=== PATIENT | female | born 1975 | race Caucasian/White ===

== ENCOUNTER 2018-01-26 14:47 | Emergency (ER) | payer MEDICARE ==
[~2018-01-26] VITALS: Ht 162.6 cm; Wt 114.3 kg
[~2018-01-26 14:47] MED LIST: ABILIFY10 MG PO; ADDERALL 20 MG20 M1 PO; ALLOPURINOL 10100 M3 PO; AUGMENTIN 875875 MG PO; CAMBIA50 MG PO; CARDIZEM CD180 MG PO; CARISOPRODOL; CARISOPRODOL 3350 MG PO; CEFTIN500 MG PO; CELLCEPT 250 M250 M1 PO; CELLCEPT200 MG/ML PER TUBE; CEPHALEXIN 500500 M1 PO; CIPROFLOXACIN500 M1 PO; CLONAZEPAM; CLONAZEPAM 1 MG1 M1 PO; CLONAZEPAM PO; CRESTOR10 MG PO; CYMBALTA60 MG PO; DEPAKOTE PO; DEPAKOTE500 MG PO; DESYREL100 MG PO; DIFLUCAN150 MG PO; DILAUDID 4 MG TA4 M1; EASY TOUCH HYP1 EA10 MC; EXCEDRIN SINUS1 EAC2; FLAGYL500 MG PO; GABAPENTIN PO; GABAPENTIN100 MG PO; GLUCOPHAGE500 MG PO; GRALISE600 MG PO; HUMALOG100 UNIT/1 SUBQ; HYDROCODONE-APA1 TA1 PO; LANTUS100 UNIT/M SUBQ; LASIX 40 MG TAB40 M2 PO; LASIX 80 MG TAB80 MG PO; LEVOFLOXACIN750 MG PO; LISINOPRIL20 MG PO; LISINOPRIL5 MG PO; LUNESTA3 MG; MAGNESIUM PO; METFORMIN; MINOCIN100 MG PO; NEURONTIN 300M300 M2 PO; NEURONTIN600 MG PO; NORCO 5-325 TA1 EACH PO; NORVASC2.5 MG PO; OMEPRAZOLE20 MG PO; OPANA ER20 MG PO; OPANA ER30 M1 PO; OXYCODONE PO; PERCOCET 7.5-31 EACH PO; POTASSIUM; PRAVACHOL; PRAVACHOL40 MG PO; PRINIVIL20 MG PO; PROVERA10 MG PO; PROVIGIL; PROVIGIL 200 M200 M1 PO; RISPERDAL2 MG PO; SEPTRA 80-4001 EACH PO; TEMAZEPAM15 MG PO; TRAZODONE HCL50 MG PO; VIT D; ZANAFLEX4 MG PO; ZANTAC 150MG T150 M1 PO; ZESTRIL40 MG PO; ZOFRAN ODT4 MG PO; ZOFRAN4 MG PO; ZPAK PO; ZYRTEC-D TABLE1 EACH PO; [UNRECOGNIZED DRUG - OTHER]
[2018-01-26 16:30] LABS: URINE BILIRUBIN NEGATIVE (Negative); URINE BLOOD TRACE (Negative); URINE CLARITY CLEAR; URINE COLOR YELLOW; URINE GLUCOSE-RANDOM 1+ (Negative); URINE KETONES TRACE (Negative); URINE LEUKOCYTES-REFLEX NEGATIVE (Negative); URINE NITRITE-REFLEX NEGATIVE (Negative); URINE PROTEIN 3+ (Negative); URINE SPECIFIC GRAVITY 1.025 (1.005-1.030); URINE UROBILINOGEN 0.2 E.U./dl (0.2-1.0)
[2018-01-26 16:41] LABS: MUCUS None Seen strn/LPF (None Seen); SQUAMOUS >10 Many /LPF (0-3)
[2018-01-26 16:42] LABS: BACTERIA-REFLEX 1-9 Few /HPF (None Seen); CRYSTALS None Seen /LPF (None Seen); URINE RBC 0-2 Rare /HPF (0-2); URINE WBC-REFLEX None Seen /HPF (0-5)
[2018-01-26 17:30] LABS: ABSOLUTE BASOPHILS 0.2 thou/uL (0.0-0.2); ABSOLUTE EOSINOPHILS 0.2 thou/uL (0.0-0.7); ABSOLUTE LYMPHOCYTES 3.1 thou/uL (0.8-5.3); ABSOLUTE NEUTROPHILS 8.5 thou/uL (1.6-8.1); BASOPHILS 1.5 %; EOSINOPHILS 1.6 %; HEMATOCRIT 38.6 % (37.0-47.0); LYMPHOCYTES 23.8 %; MCH 29.7 pg (26.0-34.0); MCHC 33.7 g/dL (28.0-37.0); MCV 88.1 fL (80.0-100.0); MONOCYTES 7.8 %; MPV 8.3 fl. (7.2-11.1); NUCLEATED RBCS 0 /100WBC; PLATELET COUNT* 361 thou/uL (150-400); POLYS 65.3 %; RBC 4.38 mil/uL (4.20-5.00); RDW-CV 14.3 % (10.5-14.5); WBC 13.1 thou/uL (4.0-11.0)
[2018-01-26 17:37] LABS: ANION GAP 8 mmol/L (7-16); BUN 13 mg/dL (7-18); CALCIUM 8.7 mg/dL (8.5-10.1); CHLORIDE 103 mmol/L (98-107); CO2 27 mmol/L (21-32); CREATININE 0.8 mg/dL (0.6-1.3); GLUCOSE 160 mg/dL (70-99); POTASSIUM 3.8 mmol/L (3.5-5.1); SODIUM 138 mmol/L (136-145)
[2018-01-26 17:44] LABS: ALBUMIN 2.6 g/dL (3.4-5.0); ALKALINE PHOSPHATASE 80 U/L (46-116); LIPASE 200 U/L (73-393); SGOT 10 U/L (15-37); SGPT 15 U/L (30-65); TOTAL BILIRUBIN 0.2 mg/dL (<0.1-1.0); TOTAL PROTEIN 6.9 g/dL (6.4-8.2); TROPONIN-I LEVEL <0.06 ng/mL (<0.06)
[2018-01-26] MEDS ORDERED: HYDROCODONE-AP1 EAC6 PO (19:02)
[2018-01-26] MEDS ORDERED: ONDANSETRON HCL4 M2 PO (19:03)
[2018-01-26 19:18] VITALS: BP 167/94
--- NOTE | 2018-01-27 15:20 | EKG ---
[place] [address] ELECTROCARDIOGRAM REPORT Name: BREE BELLO Room: [facility]#: [id number] Admission: 01/26/18 Attend Phys: Discharge: 01/26/18 Date of : 75 Report #: [id number] THIS REPORT FOR: //name// [facility] ED Test Date: 2018-01-26 Test Time: 17:16:42 Pat Name: BREE BELLO Department: Room: Gender: F Line Server: Horacio CONDE : 1975 Requested By: Yenny Castellanos Order Number: [id number] MD: Mandeep Terry Measurements Intervals [place] Rate: 82 P: 1 NE: 203 QRS: 28 QRSD: 76 T: 48 QT: 356 QTc: 416 Interpretive Statements Sinus rhythm Borderline prolonged NE interval Low voltage, precordial leads Minimal ST depression, inferior leads Baseline wander in lead(s) II,III,aVF Compared to ECG 04/13/2017 21:52:09 Low QRS voltage now present ST (T wave) deviation now present Electronically Signed On 01-27-2018 15:20:31 WAITER/WAITRESS THIRD CLASS by Mandeep Terry [email or web address] <ELECTRONICALLY SIGNED> By: Mandeep Terry MD, FACC 01/27/18 1520 1716 1716 Mandeep Terry MD, FAC /EPI
== END 2018-01-26 19:18 | disposition home or self-care (01) ==
LOC: M.ERS 14:47
PROVIDERS: Nurse Practitioner Family; Physician Assistant
DX: R10.31 Right lower quadrant pain (principal); R10.32 Left lower quadrant pain; M19.90 Unspecified osteoarthritis, unspecified site; M79.7 Fibromyalgia; F31.9 Bipolar disorder, unspecified; G47.30 Sleep apnea, unspecified; E11.9 Type 2 diabetes mellitus without complications; F17.210 Nicotine dependence, cigarettes, uncomplicated; Z90.49 Acquired absence of other specified parts of digestive tract; Z90.89 Acquired absence of other organs; Z90.710 Acquired absence of both cervix and uterus; Z88.8 Allergy status to other drugs, medicaments and biological substances; Z91.041 Radiographic dye allergy status; Z79.4 Long term (current) use of insulin

== ENCOUNTER → 2018-01-30 | Outpatient (CLI) | payer MEDICARE ==
[~2018-01-30] MED LIST changes: +CARDIZEM CD120 MG; +COREG25 MG; +HYDROCODONE-AP1 EAC6 PO; +ONDANSETRON HCL4 M2 PO; +SPIRONOLACTONE25 MG
== END ==
LOC: M.ULTRA 01-29 13:30
DX: N17.9 Acute kidney failure, unspecified (principal); D72.829 Elevated white blood cell count, unspecified; E78.5 Hyperlipidemia, unspecified; E87.6 Hypokalemia

== ENCOUNTER → 2018-02-17 | Outpatient (CLI) | payer MEDICARE ==
[2018-02-17 14:31] LABS: ABSOLUTE BASOPHILS 0.1 thou/uL (0.0-0.2); ABSOLUTE EOSINOPHILS 0.1 thou/uL (0.0-0.7); ABSOLUTE LYMPHOCYTES 2.4 thou/uL (0.8-5.3); ABSOLUTE MONOCYTES 0.6 thou/uL (0.0-1.2); ABSOLUTE NEUTROPHILS 8.4 thou/uL (1.6-8.1); BASOPHILS 0.9 %; HEMATOCRIT 38.9 % (37.0-47.0); HEMOGLOBIN 13.1 gm/dL (12.0-15.0); MCH 29.6 pg (26.0-34.0); MCHC 33.8 g/dL (28.0-37.0); MCV 87.6 fL (80.0-100.0); MONOCYTES 5.2 %; MPV 8.1 fl. (7.2-11.1); NUCLEATED RBCS 0 /100WBC; PLATELET COUNT* 335 thou/uL (150-400); POLYS 71.9 %; RBC 4.44 mil/uL (4.20-5.00); RDW-CV 14.1 % (10.5-14.5); WBC 11.6 thou/uL (4.0-11.0)
[2018-02-17 14:44] LABS: ALBUMIN 2.7 g/dL (3.4-5.0); CALCIUM 9.2 mg/dL (8.5-10.1); CREATININE 0.8 mg/dL (0.6-1.3); MAGNESIUM 1.5 mg/dL (1.8-2.4); PHOSPHORUS* 3.6 mg/dL (2.5-4.9); POTASSIUM 3.5 mmol/L (3.5-5.1); TOTAL BILIRUBIN 0.2 mg/dL (<0.1-1.0); TOTAL PROTEIN 7.2 g/dL (6.4-8.2); URIC ACID* 5.1 mg/dL (2.6-7.2)
== END ==
LOC: M.LAB 14:05
PROVIDERS: Internal Medicine Nephrology
DX: N17.9 Acute kidney failure, unspecified (principal); Q89.9 Congenital malformation, unspecified; R94.31 Abnormal electrocardiogram [ECG] [EKG]; J44.9 Chronic obstructive pulmonary disease, unspecified; E11.9 Type 2 diabetes mellitus without complications; F31.9 Bipolar disorder, unspecified; Z79.899 Other long term (current) drug therapy

== ENCOUNTER 2018-02-18 17:05 | Emergency (ER) | payer MEDICARE ==
[~2018-02-18] VITALS: Ht 162.6 cm; Wt 113.8 kg
[~2018-02-18 17:05] MED LIST changes: -CARDIZEM CD120 MG; -COREG25 MG; -SPIRONOLACTONE25 MG
[2018-02-18 19:08] VITALS: BP 172/101
== END 2018-02-18 19:10 | disposition home or self-care (01) ==
LOC: M.ERS 17:05
DX: S39.012A Strain of muscle, fascia and tendon of lower back, initial encounter (principal); M79.7 Fibromyalgia; M19.90 Unspecified osteoarthritis, unspecified site; F31.9 Bipolar disorder, unspecified; G47.30 Sleep apnea, unspecified; E11.22 Type 2 diabetes mellitus with diabetic chronic kidney disease; N18.9 Chronic kidney disease, unspecified; F17.210 Nicotine dependence, cigarettes, uncomplicated; Z88.8 Allergy status to other drugs, medicaments and biological substances; Z91.041 Radiographic dye allergy status; Z79.4 Long term (current) use of insulin; W18.39XA Other fall on same level, initial encounter; Y93.89 Activity, other specified; Y92.89 Other specified places as the place of occurrence of the external cause; Y99.8 Other external cause status

== ENCOUNTER 2018-03-25 11:03 | Emergency (ER) | payer MEDICARE ==
[~2018-03-25] VITALS: Ht 162.6 cm; Wt 113.4 kg
[2018-03-25 11:49] LABS: ABSOLUTE BASOPHILS 0.2 thou/uL (0.0-0.2); ABSOLUTE EOSINOPHILS 0.2 thou/uL (0.0-0.7); ABSOLUTE LYMPHOCYTES 3.3 thou/uL (0.8-5.3); ABSOLUTE MONOCYTES 0.7 thou/uL (0.0-1.2); ABSOLUTE NEUTROPHILS 6.8 thou/uL (1.6-8.1); BASOPHILS 1.5 %; EOSINOPHILS 2.1 %; HEMATOCRIT 38.4 % (37.0-47.0); HEMOGLOBIN 12.7 gm/dL (12.0-15.0); LYMPHOCYTES 29.5 %; MCH 28.6 pg (26.0-34.0); MCHC 33.1 g/dL (28.0-37.0); MCV 86.4 fL (80.0-100.0); MONOCYTES 6.5 %; MPV 8.1 fl. (7.2-11.1); NUCLEATED RBCS 0 /100WBC; PLATELET COUNT* 322 thou/uL (150-400); POLYS 60.4 %; RBC 4.45 mil/uL (4.20-5.00); RDW-CV 14.3 % (10.5-14.5); WBC 11.3 thou/uL (4.0-11.0)
[2018-03-25 11:59] LABS: ANION GAP 8 mmol/L (7-16); BUN 9 mg/dL (7-18); CALCIUM 8.3 mg/dL (8.5-10.1); CHLORIDE 103 mmol/L (98-107); CO2 28 mmol/L (21-32); CREATININE 1.1 mg/dL (0.6-1.3); GLUCOSE 248 mg/dL (70-99); POTASSIUM 3.5 mmol/L (3.5-5.1); SODIUM 139 mmol/L (136-145)
[2018-03-25 12:09] LABS: ALBUMIN 2.4 g/dL (3.4-5.0); ALKALINE PHOSPHATASE 82 U/L (46-116); LIPASE 175 U/L (73-393); MAGNESIUM 1.4 mg/dL (1.8-2.4); NT-PRO BRAIN NAT PEPTIDE 206 pg/mL (<300); SGOT 10 U/L (15-37); SGPT 16 U/L (30-65); TOTAL BILIRUBIN 0.2 mg/dL (<0.1-1.0); TOTAL PROTEIN 6.5 g/dL (6.4-8.2); TROPONIN-I LEVEL <0.06 ng/mL (<0.06)
[2018-03-25] MEDS ORDERED: NORCO 5-325 TA1 EACH PO (12:52)
[2018-03-25] MEDS ORDERED: ZPAK PO (12:52)
[2018-03-25 12:58] VITALS: BP 184/98
--- NOTE | 2018-03-25 15:11 | EKG ---
[place] [address] ELECTROCARDIOGRAM REPORT Name: BREE BELLO Room: [facility]#: [id number] Admission: 03/25/18 Attend Phys: Discharge: 03/25/18 Date of : 75 Report #: [id number] THIS REPORT FOR: //name// [facility] ED Test Date: 2018-03-25 Test Time: 11:25:03 Pat Name: BREE BELLO Department: Room: Gender: F Market Research Lead: DINA : 1975 Requested By: Ronak Rivera Order Number: [id number] MD: Guanakito Davila Measurements Intervals [place] Rate: 80 P: -4 MN: 172 QRS: 41 QRSD: 79 T: 71 QT: 373 QTc: 431 Interpretive Statements Sinus rhythm Borderline repolarization abnormality Baseline wander in lead(s) III,aVF,V1,V3,V4,V5 Compared to ECG 01/26/2018 17:16:42 ST (T wave) deviation no longer present Electronically Signed On 03-25-2018 15:11:03 CDT by Guanakito Davila [email or web address] <ELECTRONICALLY SIGNED> By: Guanakito Davila MD, [facility] 03/25/18 1511 1125 1125 Guanakito Davila MD, [facility] /EPI
== END 2018-03-25 13:10 | disposition home or self-care (01) ==
LOC: M.ERS 11:03
PROVIDERS: Emergency Medicine Emergency Medical Services
DX: J40 Bronchitis, not specified as acute or chronic (principal); S46.811A Strain of other muscles, fascia and tendons at shoulder and upper arm level, right arm, initial encounter; X58.XXXA Exposure to other specified factors, initial encounter; Y93.89 Activity, other specified; Y92.89 Other specified places as the place of occurrence of the external cause; Y99.8 Other external cause status

== ENCOUNTER 2018-07-27 18:52 | Emergency (ER) | payer MEDICARE ==
[~2018-07-27] VITALS: Ht 162.6 cm; Wt 115.7 kg
[2018-07-27 20:41] VITALS: BP 148/88
== END 2018-07-27 20:44 | disposition home or self-care (01) ==
LOC: M.ERS 18:52
DX: G43.909 Migraine, unspecified, not intractable, without status migrainosus (principal); M79.7 Fibromyalgia; F31.9 Bipolar disorder, unspecified; G47.30 Sleep apnea, unspecified; E11.22 Type 2 diabetes mellitus with diabetic chronic kidney disease; N18.9 Chronic kidney disease, unspecified; F17.210 Nicotine dependence, cigarettes, uncomplicated; Z90.710 Acquired absence of both cervix and uterus; Z90.49 Acquired absence of other specified parts of digestive tract; Z90.89 Acquired absence of other organs; Z79.4 Long term (current) use of insulin; Z88.8 Allergy status to other drugs, medicaments and biological substances; Z91.041 Radiographic dye allergy status

== ENCOUNTER 2018-07-29 18:54 | Emergency (ER) | payer MEDICARE ==
[~2018-07-29] VITALS: Ht 162.6 cm; Wt 115.7 kg
[2018-07-29] MEDS ORDERED: CARDIZEM CD120 MG (19:07)
[2018-07-29] MEDS ORDERED: SPIRONOLACTONE25 MG (19:08)
[2018-07-29] MEDS ORDERED: COREG25 MG (19:09)
[2018-07-29 21:30] VITALS: BP 152/91
== END 2018-07-29 21:30 | disposition home or self-care (01) ==
LOC: M.ERS 18:54
DX: G43.909 Migraine, unspecified, not intractable, without status migrainosus (principal); E11.22 Type 2 diabetes mellitus with diabetic chronic kidney disease; N18.9 Chronic kidney disease, unspecified; M79.7 Fibromyalgia; F31.9 Bipolar disorder, unspecified; G47.30 Sleep apnea, unspecified; F17.210 Nicotine dependence, cigarettes, uncomplicated; Z90.710 Acquired absence of both cervix and uterus; Z91.041 Radiographic dye allergy status; Z88.8 Allergy status to other drugs, medicaments and biological substances; Z90.49 Acquired absence of other specified parts of digestive tract; Z79.4 Long term (current) use of insulin

== ENCOUNTER 2018-11-28 02:28 | Inpatient (IN) | payer MEDICARE ==
[~2018-11-28] VITALS: Ht 162.6 cm; Wt 107.5 kg
[~2018-11-28 02:28] MED LIST changes: +CARDIZEM CD120 MG; +CHOLECALCIFEROL1 GM PO; +COREG25 MG PO; -OXYCODONE PO; +ROXICODONE15 M1 PO; +SPIRONOLACTONE25 MG PO; -VIT D
[2018-11-28 02:37] VITALS: BP 199/114
[2018-11-28 02:53] LABS: ABSOLUTE BASOPHILS 0.1 thou/uL (0.0-0.2); ABSOLUTE EOSINOPHILS 0.1 thou/uL (0.0-0.7); ABSOLUTE LYMPHOCYTES 2.8 thou/uL (0.8-5.3); ABSOLUTE MONOCYTES 0.7 thou/uL (0.0-1.2); ABSOLUTE NEUTROPHILS 8.1 thou/uL (1.6-8.1); EOSINOPHILS 0.7 %; HEMATOCRIT 41.8 % (37.0-47.0); LYMPHOCYTES 23.8 %; MCH 29.7 pg (26.0-34.0); MCHC 33.5 g/dL (28.0-37.0); MCV 88.6 fL (80.0-100.0); MONOCYTES 6.2 %; MPV 9.3 fl. (7.2-11.1); NUCLEATED RBCS 0 /100WBC; PLATELET COUNT* 377 thou/uL (150-400); POLYS 68.3 %; RBC 4.71 mil/uL (4.20-5.00); RDW-CV 13.3 % (10.5-14.5); WBC 11.9 thou/uL (4.0-11.0)
[2018-11-28 02:59] LABS: URINE BILIRUBIN NEGATIVE (Negative); URINE BLOOD TRACE (Negative); URINE CLARITY CLEAR; URINE COLOR YELLOW; URINE GLUCOSE-RANDOM 3+ (Negative); URINE KETONES NEGATIVE (Negative); URINE LEUKOCYTES-REFLEX NEGATIVE (Negative); URINE NITRITE-REFLEX NEGATIVE (Negative); URINE PROTEIN 3+ (Negative); URINE SPECIFIC GRAVITY 1.025 (1.005-1.030); URINE UROBILINOGEN 0.2 E.U./dl (0.2-1.0)
[2018-11-28 03:11] LABS: BE -5.3 mmol/L (-2 to +3); HCO3 18.7 mmol/L (22.0-26.0); PCO2 32.3 mmHg (35.0-45.0); PO2 98.7 mmHg (75.0-100.0); pH 7.381 (7.340-7.450)
[2018-11-28 03:19] LABS: BACTERIA-REFLEX >30 Many /HPF (None Seen); CRYSTALS None Seen /LPF (None Seen); HYALINE CASTS 0-3 Few /LPF (None Seen); MUCUS 0-3 Light strn/LPF (None Seen); SQUAMOUS 0-3 Few /LPF (0-3); URINE RBC 0-2 Rare /HPF (0-2); URINE WBC-REFLEX 0-5 Rare /HPF (0-5)
[2018-11-28 03:39] LABS: ALBUMIN 3.2 g/dL (3.4-5.0); CALCIUM 9.8 mg/dL (8.5-10.1); CREATININE 1.4 mg/dL (0.6-1.3); POTASSIUM 3.9 mmol/L (3.5-5.1); TOTAL BILIRUBIN 0.3 mg/dL (<0.1-1.0); TOTAL PROTEIN 7.5 g/dL (6.4-8.2)
[2018-11-28 05:21] LABS: AMP/METHAMP Negative (Negative); BARBITURATES Negative (Negative); BENZODIAZEPINES Negative (Negative); COCAINE Negative (Negative); METHADONE Negative (Negative); OPIATES Negative (Negative); PCP Negative (Negative); THC Negative (Negative)
[2018-11-28 05:55] VITALS: BP 139/89
[2018-11-28] MEDS ORDERED: ZESTRIL40 MG PO (06:38)
--- NOTE | 2018-11-28 09:59 | NUR ---
DECLINED BREAKFAST, HELD ANY INSULIN DUE TO NOT EATING.
[2018-11-28 14:29] LABS: CALCIUM 9.3 mg/dL (8.5-10.1); CREATININE 1.2 mg/dL (0.6-1.3); MAGNESIUM 1.7 mg/dL (1.8-2.4); POTASSIUM 3.5 mmol/L (3.5-5.1)
[2018-11-28 16:00] VITALS: BP 130/87
[2018-11-28 16:15] LABS: URINE BILIRUBIN NEGATIVE (Negative); URINE BLOOD TRACE (Negative); URINE CLARITY CLEAR; URINE COLOR YELLOW; URINE GLUCOSE-RANDOM TRACE (Negative); URINE KETONES NEGATIVE (Negative); URINE LEUKOCYTES-REFLEX NEGATIVE (Negative); URINE NITRITE-REFLEX NEGATIVE (Negative); URINE PROTEIN 3+ (Negative); URINE SPECIFIC GRAVITY >= 1.030 (1.005-1.030); URINE UROBILINOGEN 0.2 E.U./dl (0.2-1.0)
[2018-11-28 16:28] LABS: BACTERIA-REFLEX 1-9 Few /HPF (None Seen); CASTS None Seen /LPF (None Seen); CRYSTALS None Seen /LPF (None Seen); SQUAMOUS NONE SEEN /LPF (0-3); URINE RBC None Seen /HPF (0-2); URINE WBC-REFLEX None Seen /HPF (0-5)
[2018-11-29] VITALS: BP 146/49
[2018-11-29 04:00] VITALS: BP 125/78; BP 146/49
[2018-11-29 08:48] VITALS: BP 109/69
[2018-11-29] MEDS ORDERED: HUMULIN R100 UNIT/M SUBQ (11:00)
[2018-11-29] MEDS ORDERED: HUMULIN N100 UNIT/1 SUBQ (11:00)
--- NOTE | 2018-11-29 11:15 | EKG ---
[place] [address] ELECTROCARDIOGRAM REPORT Name: BREE BELLO Room: [address] ADM IN M.R.#: [id number] Admission: 11/28/18 Attend Phys: Anup Vinson MD Discharge: Date of : 75 Report #: [id number] THIS REPORT FOR: //name// [facility] ED Test Date: 2018-11-28 Test Time: 03:10:27 Pat Name: BREE BELLO Department: Room: [address] Gender: F Radio Assembler: CECI : 1975 Requested By: Yenny Womack Order Number: [id number] MD: Guanakito Davila Measurements Intervals [place] Rate: 115 P: 8 MT: 170 QRS: 29 QRSD: 78 T: 53 QT: 310 QTc: 429 Interpretive Statements Sinus tachycardia Baseline wander in lead(s) V1 Compared to ECG 03/25/2018 11:25:03 Sinus rate has increased Electronically Signed On 11-29-2018 11:14:57 TELEVISION TUBE INSPECTOR by Guanakito Davila [email or web address] <ELECTRONICALLY SIGNED> By: Guanakito Davila MD, [facility] 11/29/18 1114 9 9 Guanakito Davila MD, FAC /EPI
[2018-11-29 12:00] VITALS: BP 122/77
[2018-11-29 12:38] VITALS: BP 109/69
--- NOTE | 2018-11-29 14:07 | NUR ---
PATIENT PROVIDED WITH GLUCOMETER. PER DR OBANDO WILL START ON NPH AND REGULAR INSULIN AT [facility] FOR FINANCIAL REASONS. SCRIPTS GIVEN TO PATIENT FOR THOSE AND LANCETS AND TEST STRIPS. PATIENT EDUCATED ON METER AND INSULINS. VOICED UNDERSTANDING OF EDUCATION. LEFT AMBULATORY WITH SPOUSE AND SPECIAL EDUCATION PARA PROFESSIONAL AT 1406.
[2018-11-29 22:05] LABS: GLYCOHEMOGLOBIN (HGB A1C) 10.5 % (4.8-5.6)
== END 2018-11-29 14:06 | disposition home or self-care (01) | DRG 682 ==
LOC: M.ERS 02:28 → M.3W 03:45 → M.TBA-ER 03:45 → M.3W 04:56
PROVIDERS: Internal Medicine; Personal Emergency Response Attendant; ADMIT Internal Medicine
PROC: 5A09357 Assistance with Respiratory Ventilation, Less than 24 Consecutive Hours, Continuous Positive Airway Pressure (ICD-10-PCS; principal; 2018-11-28)
DX: N17.0 Acute kidney failure with tubular necrosis (principal); E11.00 Type 2 diabetes mellitus with hyperosmolarity without nonketotic hyperglycemic-hyperosmolar coma (NKHHC); R65.11 Systemic inflammatory response syndrome (SIRS) of non-infectious origin with acute organ dysfunction; E66.2 Morbid (severe) obesity with alveolar hypoventilation; Z68.41 Body mass index [BMI] 40.0-44.9, adult; N39.0 Urinary tract infection, site not specified; N18.3 Chronic kidney disease, stage 3 (moderate); E11.65 Type 2 diabetes mellitus with hyperglycemia; M79.7 Fibromyalgia; E11.22 Type 2 diabetes mellitus with diabetic chronic kidney disease; R63.1 Polydipsia; G47.419 Narcolepsy without cataplexy; F31.9 Bipolar disorder, unspecified; Z90.710 Acquired absence of both cervix and uterus; Z98.51 Tubal ligation status; Z90.49 Acquired absence of other specified parts of digestive tract; Z88.8 Allergy status to other drugs, medicaments and biological substances; Z91.041 Radiographic dye allergy status; Z79.4 Long term (current) use of insulin; Z79.899 Other long term (current) drug therapy; Z82.49 Family history of ischemic heart disease and other diseases of the circulatory system; Z83.3 Family history of diabetes mellitus; Z80.9 Family history of malignant neoplasm, unspecified; Z83.6 Family history of other diseases of the respiratory system; Z84.1 Family history of disorders of kidney and ureter

== ENCOUNTER 2019-01-07 01:43 | Emergency (ER) | payer MEDICARE ==
[~2019-01-07] VITALS: Ht 162.6 cm; Wt 107.0 kg
[~2019-01-07 01:43] MED LIST changes: +HUMULIN N100 UNIT/1 SUBQ; +HUMULIN R100 UNIT/M SUBQ
[2019-01-07 02:16] LABS: ABSOLUTE BASOPHILS 0.1 thou/uL (0.0-0.2); ABSOLUTE EOSINOPHILS 0.1 thou/uL (0.0-0.7); ABSOLUTE LYMPHOCYTES 2.7 thou/uL (0.8-5.3); ABSOLUTE MONOCYTES 0.7 thou/uL (0.0-1.2); ABSOLUTE NEUTROPHILS 7.5 thou/uL (1.6-8.1); BASOPHILS 0.9 %; EOSINOPHILS 1.1 %; HEMATOCRIT 37.8 % (37.0-47.0); HEMOGLOBIN 12.8 gm/dL (12.0-15.0); LYMPHOCYTES 24.6 %; MCH 29.5 pg (26.0-34.0); MCHC 33.8 g/dL (28.0-37.0); MCV 87.2 fL (80.0-100.0); MONOCYTES 6.2 %; MPV 8.6 fl. (7.2-11.1); NUCLEATED RBCS 0 /100WBC; PLATELET COUNT* 343 thou/uL (150-400); POLYS 67.2 %; RBC 4.34 mil/uL (4.20-5.00); RDW-CV 13.3 % (10.5-14.5); WBC 11.2 thou/uL (4.0-11.0)
[2019-01-07 02:23] LABS: ANION GAP 8 mmol/L (7-16); BUN 15 mg/dL (7-18); CALCIUM 9.2 mg/dL (8.5-10.1); CHLORIDE 101 mmol/L (98-107); CO2 24 mmol/L (21-32); CREATININE 1.2 mg/dL (0.6-1.3); GLUCOSE 284 mg/dL (70-99); POTASSIUM 3.4 mmol/L (3.5-5.1); SODIUM 133 mmol/L (136-145)
[2019-01-07 02:29] LABS: ALKALINE PHOSPHATASE 131 U/L (46-116); LIPASE 218 U/L (73-393); SGOT 22 U/L (15-37); SGPT 33 U/L (30-65); TOTAL BILIRUBIN 0.2 mg/dL (<0.1-1.0); TROPONIN-I LEVEL <0.06 ng/mL (<0.06)
[2019-01-07] MEDS ORDERED: ZOFRAN ODT4 MG DISSOLVE (04:17)
[2019-01-07 04:57] VITALS: BP 162/88
--- NOTE | 2019-01-07 15:38 | EKG ---
[place] [address] ELECTROCARDIOGRAM REPORT Name: BREE BELLO Room: [facility]#: [id number] Admission: 01/07/19 Attend Phys: Discharge: 01/07/19 Date of : 75 Report #: [id number] THIS REPORT FOR: //name// [facility] ED Test Date: 2019-01-07 Test Time: 02:21:17 Pat Name: BREE BELLO Department: Room: Gender: F Mathematics Teacher: Horacio DOMINGUEZ : 1975 Requested By: Ronak Rivera Order Number: [id number] MD: Guanakito Davila Measurements Intervals [place] Rate: 93 P: 27 IA: 177 QRS: 32 QRSD: 73 T: QT: 325 QTc: 405 Interpretive Statements Sinus rhythm Borderline repolarization abnormality Baseline wander in lead(s) II,III,aVR,aVF Compared to ECG 11/28/2018 03:10:27 Sinus tachycardia no longer present Electronically Signed On 01-07-2019 15:38:04 MIRROR FINISHING MACHINE OPERATOR by Guanakito Davila [email or web address] <ELECTRONICALLY SIGNED> By: Guanakito Davila MD, [facility] 01/07/19 1538 0 0 Guanakito Davila MD, [facility] /EPI
== END 2019-01-07 04:37 | disposition home or self-care (01) ==
LOC: M.ERS 01:43
PROVIDERS: Emergency Medicine Emergency Medical Services
DX: R10.84 Generalized abdominal pain (principal); F17.210 Nicotine dependence, cigarettes, uncomplicated; M19.90 Unspecified osteoarthritis, unspecified site; M79.7 Fibromyalgia; F31.9 Bipolar disorder, unspecified; G47.30 Sleep apnea, unspecified; E11.22 Type 2 diabetes mellitus with diabetic chronic kidney disease; Z90.710 Acquired absence of both cervix and uterus; Z79.4 Long term (current) use of insulin; Z88.8 Allergy status to other drugs, medicaments and biological substances; Z91.041 Radiographic dye allergy status; Z90.49 Acquired absence of other specified parts of digestive tract; Z90.89 Acquired absence of other organs

== ENCOUNTER 2019-05-08 00:03 | Emergency (ER) | payer MEDICARE ==
[~2019-05-08] VITALS: Ht 162.6 cm; Wt 111.1 kg
[~2019-05-08 00:03] MED LIST changes: +ZOFRAN ODT4 MG DISSOLVE
[2019-05-08 01:21] VITALS: BP 177/68
== END 2019-05-08 01:21 | disposition home or self-care (01) ==
LOC: M.ERS 00:03
DX: S60.042A Contusion of left ring finger without damage to nail, initial encounter (principal); S60.052A Contusion of left little finger without damage to nail, initial encounter; S80.212A Abrasion, left knee, initial encounter; E11.9 Type 2 diabetes mellitus without complications; M79.7 Fibromyalgia; F31.9 Bipolar disorder, unspecified; G47.30 Sleep apnea, unspecified; E11.22 Type 2 diabetes mellitus with diabetic chronic kidney disease; N18.9 Chronic kidney disease, unspecified; F17.210 Nicotine dependence, cigarettes, uncomplicated; Z91.041 Radiographic dye allergy status; Z88.8 Allergy status to other drugs, medicaments and biological substances; W10.9XXA Fall (on) (from) unspecified stairs and steps, initial encounter; Y93.89 Activity, other specified; Y92.89 Other specified places as the place of occurrence of the external cause; Y99.8 Other external cause status

== ENCOUNTER → 2019-05-14 | Outpatient (CLI) | payer MEDICARE | LOC: M.RAD 09:51 | DX: S62.655A Nondisplaced fracture of middle phalanx of left ring finger, initial encounter for closed fracture (principal); X58.XXXA Exposure to other specified factors, initial encounter; Y93.89 Activity, other specified; Y92.89 Other specified places as the place of occurrence of the external cause; Y99.8 Other external cause status ==

== ENCOUNTER 2019-11-11 14:46 | Emergency (ER) | payer MEDICARE ==
[~2019-11-11] VITALS: Ht 162.6 cm; Wt 115.2 kg
[2019-11-11] MEDS ORDERED: PREDNISONE50 MG PO (17:07)
[2019-11-11] MEDS ORDERED: VENTOLIN HFA 1818 GM INH (17:07)
[2019-11-11 17:20] VITALS: BP 171/96
== END 2019-11-11 17:20 | disposition home or self-care (01) ==
LOC: M.ERS 14:46
DX: J20.9 Acute bronchitis, unspecified (principal); E11.22 Type 2 diabetes mellitus with diabetic chronic kidney disease; N18.9 Chronic kidney disease, unspecified; M79.7 Fibromyalgia; F32.9 Major depressive disorder, single episode, unspecified; G47.30 Sleep apnea, unspecified; F17.210 Nicotine dependence, cigarettes, uncomplicated; Z90.89 Acquired absence of other organs; Z90.49 Acquired absence of other specified parts of digestive tract; Z79.4 Long term (current) use of insulin; Z88.1 Allergy status to other antibiotic agents; Z88.8 Allergy status to other drugs, medicaments and biological substances

== ENCOUNTER 2019-12-29 10:30 | Inpatient (IN) | payer MEDICARE ==
[~2019-12-29] VITALS: Ht 162.6 cm; Wt 117.9 kg
[~2019-12-29 10:30] MED LIST changes: +PREDNISONE50 MG PO; +VENTOLIN HFA 1818 GM INH
[2019-12-29 10:39] VITALS: BP 219/115
[2019-12-29 12:03] LABS: ABSOLUTE BASOPHILS 0.1 thou/uL (0.0-0.2); ABSOLUTE EOSINOPHILS 0.1 thou/uL (0.0-0.7); ABSOLUTE LYMPHOCYTES 2.1 thou/uL (0.8-5.3); ABSOLUTE MONOCYTES 0.7 thou/uL (0.0-1.2); ABSOLUTE NEUTROPHILS 10.6 thou/uL (1.6-8.1); BASOPHILS 0.8 %; EOSINOPHILS 0.9 %; HEMATOCRIT 39.6 % (37.0-47.0); HEMOGLOBIN 13.4 gm/dL (12.0-15.0); LYMPHOCYTES 15.3 %; MCH 29.6 pg (26.0-34.0); MCHC 33.9 g/dL (28.0-37.0); MCV 87.4 fL (80.0-100.0); MPV 8.2 fl. (7.2-11.1); NUCLEATED RBCS 0 /100WBC; PLATELET COUNT* 328 thou/uL (150-400); RBC 4.54 mil/uL (4.20-5.00); RDW-CV 13.6 % (10.5-14.5); WBC 13.6 thou/uL (4.0-11.0)
[2019-12-29 12:14] LABS: CALCIUM 8.4 mg/dL (8.5-10.1); CREATININE 1.3 mg/dL (0.6-1.3); POTASSIUM 4.6 mmol/L (3.5-5.1)
[2019-12-29 12:18] LABS: ALBUMIN 2.9 g/dL (3.4-5.0); TOTAL BILIRUBIN 0.2 mg/dL (<0.1-1.0); TOTAL PROTEIN 7.1 g/dL (6.4-8.2)
--- NOTE | 2019-12-29 12:18 | NUR ---
ORTHO HERE TO EVALUATE
--- NOTE | 2019-12-29 14:34 | EKG ---
[place] [address] ELECTROCARDIOGRAM REPORT Name: BREE BELLO Room: [facility]#: [id number] Admission: 12/29/19 Attend Phys: Discharge: Date of : 75 Report #: [id number] THIS REPORT FOR: //name// [facility] ED Test Date: 2019-12-29 Test Time: 12:15:11 Pat Name: BREE BELLO Department: Room: Gender: F Advisor Advocate Angel Co Founder: JUAN : 1975 Requested By: Colette Stanford Order Number: [id number] MD: Jluis Lott Measurements Intervals [place] Rate: 78 P: 49 NC: 198 QRS: 42 QRSD: 74 T: 65 QT: 343 QTc: 391 Interpretive Statements Sinus rhythm Compared to ECG 01/07/2019 02:21:17 No significant changes Electronically Signed On 12-29-2019 14:33:41 PARK WORKER by Jluis Lott [email or web address] <ELECTRONICALLY SIGNED> By: Jluis Lott MD, [facility] 12/29/19 1433 1215 1215 Jluis Lott MD, FACC /EPI
[2019-12-29 15:12] LABS: URINE BILIRUBIN NEGATIVE (Negative); URINE BLOOD TRACE (Negative); URINE CLARITY CLEAR; URINE COLOR YELLOW; URINE GLUCOSE-RANDOM NEGATIVE (Negative); URINE KETONES NEGATIVE (Negative); URINE LEUKOCYTES-REFLEX NEGATIVE (Negative); URINE NITRITE-REFLEX NEGATIVE (Negative); URINE PROTEIN 2+ (Negative); URINE SPECIFIC GRAVITY 1.025 (1.005-1.030); URINE UROBILINOGEN 0.2 E.U./dl (0.2-1.0)
[2019-12-29 15:13] VITALS: BP 186/94
[2019-12-29 15:20] LABS: CRYSTALS None Seen /LPF (None Seen); HYALINE CASTS 0-3 Few /LPF (None Seen); MUCUS None Seen strn/LPF (None Seen); SQUAMOUS 0-3 Few /LPF (0-3)
[2019-12-29 15:21] LABS: BACTERIA-REFLEX None Seen /HPF (None Seen); URINE RBC 0-2 Rare /HPF (0-2); URINE WBC-REFLEX None Seen /HPF (0-5)
[2019-12-29 20:30] VITALS: BP 172/92
[2019-12-29 23:57] VITALS: BP 158/78
[2019-12-30 03:59] VITALS: BP 149/80
[2019-12-30 04:12] LABS: HEMATOCRIT 38.2 % (37.0-47.0); HEMOGLOBIN 12.7 gm/dL (12.0-15.0)
--- NOTE | 2019-12-30 05:37 | NUR ---
PT ARRIVED AT 2034 FROM PACU. ON 2L BY NC THEN HOME CPAP AT NIGHT. DRESSING TO RT ANKLE C/D/I. RT LEG ELEVATED ON PILLOW PER PT REQUEST. MEDS GIVEN ORDERED. PAIN MANAGED WITH OXY IR. NO VOIDING ISSUES. TOLERATED SNACKS, NO N/V. IV FLUID RUNNING ORDERED. HOULRY ROUNDING COMPLETED. WILL CONTINUE TO MONITOR.
[2019-12-30 09:25] VITALS: BP 190/105
--- NOTE | 2019-12-30 11:02 | NUR ---
INITIAL ASSESSMENT: Pt evaluated for d/c planning needs. Reviewed chart and spoke with nurse, PT and pt. Pt is alert and oriented. Pt lives in house with spouse and children. Pt remains active in the community and is still driving. Pt has CPAP at home with oxygen for CPAP. Pt said she had home health about 10 years ago. Pt plans on returning home on d/c from hospital. Will await input from PT re: DME needed.
[2019-12-30 16:00] VITALS: BP 167/98
--- NOTE | 2019-12-30 19:00 | NUR ---
PATIENT PLEASANT AND COOPERATIVE W/ ASSESS AND CARES, THERAPIES THIS SHIFT. PATIENT TALKATIVE. SEE MAR. RLE ELEVATED ON PILLOW. UP TO BSC, URINATING W/O DIFF. PATIENT STATES HAVING CONVERSATION W/ A REP FROM [facility], STATES THAT SHE IS INTERESTED IN GOING THERE WHILE HER HOME IS BEING ADJUSTED FOR HER SAFETY. EATING WELL. ~TJRN
[2019-12-30 19:25] VITALS: BP 150/93
[2019-12-31] VITALS: BP 154/90
[2019-12-31 02:07] LABS: GLYCOHEMOGLOBIN (HGB A1C) 8.8 % (4.8-5.6)
[2019-12-31 03:41] VITALS: BP 105/59
--- NOTE | 2019-12-31 04:18 | NUR ---
ASSUMED CARE OF PT 12/30/19 AT APPROX 1930, PT A&OX4, PT ON ROOM AIR WHILE AWAKE, CPAP WHILE SLEEPING, VSS, PAIN MEDS REQUESTED AND GIVEN ORDERED. PT REQUESTED MUSCLE RELAXANT AT APPROX 0110, PHYSICIAN NOTIFIED AND ORDER GIVEN FOR FLEXERIL 10MG Q8H PRN. PT REPORT ONETIME EPISODE COUGHING AT APPROX 0052, YELLOW SPUTUM NOTED. ASSESSMENT AND HOURLY ROUNDINGS COMPLETED, WILL CONTINUE TO MONITOR.
[2019-12-31 04:21] LABS: ABSOLUTE BASOPHILS 0.1 thou/uL (0.0-0.2); ABSOLUTE LYMPHOCYTES 1.7 thou/uL (0.8-5.3); ABSOLUTE MONOCYTES 1.1 thou/uL (0.0-1.2); ABSOLUTE NEUTROPHILS 13.3 thou/uL (1.6-8.1); BASOPHILS 0.4 %; EOSINOPHILS 0.1 %; HEMATOCRIT 35.3 % (37.0-47.0); HEMOGLOBIN 11.7 gm/dL (12.0-15.0); LYMPHOCYTES 10.6 %; MCH 29.3 pg (26.0-34.0); MCHC 33.3 g/dL (28.0-37.0); MONOCYTES 6.9 %; MPV 8.8 fl. (7.2-11.1); NUCLEATED RBCS 0 /100WBC; PLATELET COUNT* 338 thou/uL (150-400); RDW-CV 13.6 % (10.5-14.5); WBC 16.3 thou/uL (4.0-11.0)
[2019-12-31 04:39] LABS: CALCIUM 8.2 mg/dL (8.5-10.1); CREATININE 1.4 mg/dL (0.6-1.3); POTASSIUM 4.7 mmol/L (3.5-5.1)
[2019-12-31 07:20] VITALS: BP 109/63
[2019-12-31] MEDS ORDERED: HUMALOG100 UNIT/1 SUBQ (08:08)
[2019-12-31] MEDS ORDERED: XANAX 0.5 MG0.5 MG PO (08:08)
[2019-12-31] MEDS ORDERED: LANTUS SUBQ (08:08)
[2019-12-31] MEDS ORDERED: ROXICODONE15 M1 PO (08:08)
[2019-12-31] MEDS ORDERED: LAMICTAL100 MG PO (08:14)
[2019-12-31] MEDS ORDERED: ADDERALL 10 MG10 MG PO (08:14)
[2019-12-31] MEDS ORDERED: ENOXAPARIN40 MG/0.1 SUBQ (08:18)
[2019-12-31] MEDS ORDERED: CYCLOBENZAPRINE10 MG PO (08:18)
[2019-12-31] MEDS ORDERED: TACROLIMUS0.5 MG PO (08:24)
[2019-12-31] MEDS ORDERED: PERCOCET 5-3251 EACH PO (08:24)
[2019-12-31] MEDS ORDERED: KEFLEX500 M2 PO (08:44)
--- NOTE | 2019-12-31 13:26 | NUR ---
FAXED REFERRAL TO [facility] FOR DC TODAY. WILL CONFIRM WITH SLAVA/ALVARADO THAT SHE RECEIVED AND NEED TO FIND PLACEMENT TODAY. [phone]; [phone].
--- NOTE | 2019-12-31 14:22 | NUR ---
CM ASSESSMENT: PT LIVES AT HOME WITH HER AND CHILDREN. PT DECLINES HH. STATES SHE WOULD LIKE TO START OUTT PT AT [facility] THER[facility]. HAS A HOSPITAL BED,BSC AND RECLINER AT HOME. PT WILL NEED A WALKER AND WC FOR HOME USE.
[2019-12-31] MEDS ORDERED: MS CONTIN15 MG PO (14:29)
[2019-12-31 14:34] VITALS: BP 109/63
--- NOTE | 2019-12-31 14:54 | NUR ---
ASSESSMENT COMPLETE. PT ALERT AND ORIENTED X4. DRESSING TO RIGHT LEG C/D/I. PT UP IN CHAIR MOST OF THE DAY. PLAN TO DC TONIGHT HOME WITH OUTPATIENT PT/OT. WHEELCHAIR ORDERED TO BE DELIVERED TO PT HOME, WALKER TO BE GIVEN AT DC. PRESCRIPTIONS CALLED INTO PHARMACY- LOVENOX AND KEFLEX PER DR GONZALES. PT HAS NO OTHER CONCERNS AT THIS TIME. SEE ASSESSMENT AND VITALS FOR OTHER DETAILS. CALL LIGHT WITHIN REACH, WILL CONTINUE PLAN OF CARE
--- NOTE | 2019-12-31 15:33 | NUR ---
Pt to dc home with as was determined that pt does not meet criteria or need to go to SNF or inpt rehab after all. Pt agreeable to home today with . Pt refusing HH services but agreed to come back for OP therapy follow up. Pt preference for [facility] OP; SW fax order for OP therapy to [facility] OP intake. PT determined pt need for RW and suggested borrowing or renting wc from [employer] or [employer]. RW already approved to be issued through [facility], SW completed order and faxed to [facility]. Pt to provide pt ride home.
--- NOTE | 2019-12-31 17:47 | NUR ---
PT DISCHARGED TO HOME WITH OP THERAPY BY WHEELCHAIR WITH NURSING STAFF AND AT 1747. DRESSING C/D/I. IV OUT. PT STABLE. PRESCRIPTIONS CALLED IN BY [facility]. PERSONAL BELONGINGS SENT WITH PT.
--- NOTE | 2020-01-04 21:34 | OP ---
[address] [address] OPERATIVE REPORT Name: BREE BELLO Room: [address]#: [id number] Admission: 12/29/19 Attend Phys: Raul Yanes MD Discharge: 12/31/19 Date of : 75 Report #: [id number] THIS REPORT FOR: //name// CC: Raul Sanches Taveras DATE OF SERVICE: 12/29/2019 PREOPERATIVE DIAGNOSIS: Right trimalleolar ankle fracture. POSTOPERATIVE DIAGNOSIS: Right trimalleolar ankle fracture with syndesmotic injury. OPERATION PERFORMED: 1. Open reduction and internal fixation, right trimalleolar ankle fracture (fixation of lateral and medial malleoli). 2. Open reduction and internal fixation, right syndesmosis. SURGEON: Anup Ellis DO ASSISTANTS: 1. Kostas Dove DO 2. Leydi Saucedo DO ANESTHESIA: General. ANTIBIOTICS: Vancomycin IV preoperatively, pharmacy dosed. BLOOD LOSS: 25 mL. FLUIDS: 850 mL lactated Ringer's. COMPLICATIONS: None. SPECIMENS: None. DRAINS: None. CONDITION OF PATIENT: Stable to PACU. IMPLANTS: Faucett distal fibular locking plate with 2.7 locking screws distally and cortical screws proximally. Faucett 4.0 partially threaded cannulated screw medially x 1. Arthrex TightRope. INDICATIONS FOR PROCEDURE AND PREOPERATIVE EXAM AND DISCUSSION: The patient was admitted to [facility] after diagnosed with a trimalleolar ankle [facility] [address] [place] [address] OPERATIVE REPORT Name: BREE BELLO Brooks Room: [address] IN M.R.#: [id number] Admission: 12/29/19 Attend Phys: Raul Yanes MD Discharge: 12/31/19 Date of : 75 Report #: [id number] fracture. My partner, Dr. Herman, originally saw the patient in consultation, contacted me directly regarding taking over her care due to the complexity of her fracture and overall comorbidity state. He said her swelling was mild, appropriate for surgical intervention. He performed a closed reduction and splint application. He discussed with them taking over her care that we had discussed this personally and I met her in the preoperative area. Dr. Herman and I agree to operative fixation, today would be the best situation moving forward for her. I went over with her and her who is present during our conversation. Her imaging, diagnosis, exam findings, treatment options, plan for surgery with reasoning and risks and complications in detail. In regards to her exam findings, we took the splint down in the preoperative area. Her skin was in good condition. No pressure sores. No fracture blisters. Skin was wrinkling in all areas of potential incisions and ready for surgical intervention. I described the surgery to her in detail and addressed questions they had to stated satisfaction. I went over with them risks and complications associated with surgery. They include but are not limited to infection that could require surgical treatment, long-term antibiotics and their potential sequela of end-organ damage, C. difficile colitis, resistance, hematopoietic dysfunction, etc., wound healing complications, bleeding, potential transfusion and risks, hematoma, seroma, continued and/or worsening of pain, decreased function compared to pre-injury function. I explained that this could lead to loss of independent ambulation, ability to do activities that she enjoys, occupations, etc., malunion, malrotation, nonunion, ankle instability, potential OCD or intra-articular injuries and that diagnosis could be delayed, progression to osteoarthritis which would be posttraumatic in nature, ramírez-implant fracture, allergy to implant. It should be noted she denies any metal allergy. Tendon, ligamentous muscle injury, neurovascular injury that could be permanent. I explained to her the most likely injury with this type of procedure would be injury to the superficial peroneal nerve and explained the clinical sequelae, prominent/painful hardware, stiffness, gait dysfunction, loss of strength, balance and coordination, complex regional pain syndrome, compartment syndrome, need for further intervention and/or surgery for any reason. I explained I may have to refer her to another center and/or surgeon, organ dysfunction/failure. 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 She verbalized understanding of this and was okay with receiving that antibiotic. DVT, PE, MO, stroke, , anesthetic related complications will be discussed by the anesthesia team prior to surgery. There is also the possibility of unforeseen/not specifically mentioned complications are always possible. Also discussed with them that with her diabetes, she is at increased risk from baseline, primarily all the complications including failure of surgery in general, but specifically increased risks in regards to wound healing complications, infection, malunion, nonunion, progression to ankle instability, collapse and posttraumatic arthritis, need for further intervention or surgery for any reason. Did explain to her that she is even at risk for an amputation and this could be below knee [address] [address] OPERATIVE REPORT Name: BREE BELLO Room: [address]#: [id number] Admission: 12/29/19 Attend Phys: Raul Yanes MD Discharge: 12/31/19 Date of : 75 Report #: [id number] or even potentially worse, depending. I explained to them that the most important thing to do would be strictly control her diabetes moving forward and follow postoperative instructions. It should also be noted that she states she potentially uses tobacco products on occasion and smokes marijuana, upon further questioning. I explained to them that avoiding any nicotine products would be essential as it again increases her risk from baseline, just like the diabetes does, and then I would avoid the marijuana and the chemical products being introduced into her body and I would live as healthily and eat as healthily as possible. After addressing all questions to her and her 's stated satisfaction, they said they acknowledged and accepted the risks and complications. They said they understood what was presented to them what they would be consenting for. They thanked me for my time and detailed explanations given and gave verbal and written consent to proceed. DESCRIPTION OF PROCEDURE: I marked the right lower extremity in the presence of the operative team members. Everyone agreed this was correct. She was taken back to the operative suite where a briefing was performed indicating correct patient, procedure, site, antibiotics and that implants were present and sterile. All team members agreed. She was transferred over to the operative table in supine position, well-padded and secured appropriately. General anesthetic administered. A well-padded tourniquet was placed proximally on the right lower extremity, which was sterilely prepped and draped in standard fashion. Timeout was performed indicating correct patient, procedure, site, antibiotics and that implants were present and sterile. All team members agreed. Marked out incisions. Esmarched the extremity and insufflated the tourniquet to 250 mmHg, again laterally, scalpel through skin, careful soft tissue dissection down visualized the superficial peroneal nerve and protected it throughout the entirety of the case on to bone extraperiosteal where it could be, visualized our fracture site, obtained an anatomic reduction; restored length, alignment and rotation, confirmed by direct visualization on multiplanar C-arm imaging. The comminution was in place; therefore, a lag screw not appropriate, although replaced with K-wires and provisional reduction clamps, placed our plate, confirmed on multiplanar C-arm imaging and this was appropriate. We placed 3 drills, measured and placed 3 cortical screws proximally and 3 unicortical locking screws distally, removed provisional fixation devices and we had excellent stability. We then turned our attention medially where we made an incision. Careful soft tissue dissection to visualize the saphenous structures and protect them throughout the entirety of this case. Visualized our fracture fragment, cleaned out any debris looked within the joint. There was no evidence of any OCD lesion or intraarticular presence of debris, anatomically reduced the medial malleolar fragment. This was very small, held in position with a dental pick. Multiplanar C-arm imaging confirmed that reduction. Due to the small nature, we were able to get one screw in there safely. We placed that in for a 4.0 cannulated screw, confirmed on multiplanar C-arm imaging and was appropriate. Measured, drilled the near cortex and placed an appropriately sized 4-0 cannulated screw, partially threaded. Under C-arm [address] [address] OPERATIVE REPORT Name: BREE BELLO Room: [address] IN M.R.#: [id number] Admission: 12/29/19 Attend Phys: Raul Yanes MD Discharge: 12/31/19 Date of : 75 Report #: [id number] and direct visualization, we confirmed with intraoperative cotton testing and external rotation stress testing that the syndesmosis was unstable. We then openly reduced the syndesmosis and with direct visualization, placed a clamp, confirmed that by direct visualization and multiplanar C-arm imaging that our reduction was appropriate. We then, through the Arthrex TightRope on to the backtable, drilled, placed our TightRope and tightened down appropriately releasing the clamp and performing final tightening with the release. Multiplanar C-arm imaging, at this point in time, showed excellent reduction of the fracture, mormonism of joint lines and stability and the placement of all hardware and TightRope, saved images, dismissed C-arm, let down tourniquet, total time was 51 minutes. Maintained hemostasis. Foot was warm and well perfused with palpable pedal pulses. Thoroughly irrigated with normal saline. Laterally, we were able to get closure over the plate with 0 Vicryl [id number]-sw-vqlis interrupted. Superficial peroneal nerve was intact and protected, 2-0 Monocryl buried deeper subcutaneous, skin was closed with modified Allgower-Donati suture interrupted 3-0 nylon. Medially, we irrigated with normal saline and closed with 2-0 Monocryl buried deep and 3-0 nylon modified Allgower-Donati interrupted. Debriefing was performed where we confirmed procedure, blood loss and that all counts were correct and final. All team members agreed. We placed her into a sterile, very well-padded splint with the ankle positioned in neutral dorsiflexion. This consisted of Xeroform gauze, 4 x 4s, soft roll, including bulky Macias type padding for any prominences, stirrup splint and Cedrick wrap. She was extubated and transferred off the operating table, taken to PACU, stable. POSTOPERATIVE COURSE AND EVALUATION: I spoke with her family members per her wishes, addressed any questions they had to their stated satisfaction. She was resting in PACU with stable vital signs, pain controlled, neurovascularly intact. No pain out of proportion with passive stretching. Compartments were soft and compressible. Splint clean, dry and intact. PACU films showed stable fixation and fracture reduction. No change compared to final intraoperative images. She will be admitted for observation. She is admitted to the medical team. We contacted Dr. Yanes personally to go over this and he was happy to admit. We appreciate his expertise. DVT prophylaxis will be pharmacological and mechanical as instructed until directed otherwise. Nonweightbearing. Maintain splint clean, dry and intact. Pain medication as directed. Call anytime with questions or concerns. Would anticipate discharge tomorrow, but will evaluate. I encouraged nursing, medical staff, the patient and family to call anytime with questions or concerns. <ELECTRONICALLY SIGNED> By: Anup Ellis DO 01/04/202133 23 34Anup Ellis DO /nt
== END 2019-12-31 17:49 | disposition home or self-care (01) | DRG 493 ==
LOC: M.ERS 10:30 → M.SUR 10:30 → M.ERS 15:14 → M.ORTHSURG 19:38
PROVIDERS: Orthopaedic Surgery; Physician Assistant; ADMIT Internal Medicine
PROC: 2W3SX1Z Immobilization of Right Foot using Splint (ICD-10-PCS; principal; 2019-12-29)
PROC: 0QSG04Z Reposition Right Tibia with Internal Fixation Device, Open Approach (ICD-10-PCS; principal; 2019-12-29)
PROC: 0QSJ04Z Reposition Right Fibula with Internal Fixation Device, Open Approach (ICD-10-PCS; principal; 2019-12-29)
PROC: 0SSF04Z Reposition Right Ankle Joint with Internal Fixation Device, Open Approach (ICD-10-PCS; principal; 2019-12-29)
PROC: 5A09357 Assistance with Respiratory Ventilation, Less than 24 Consecutive Hours, Continuous Positive Airway Pressure (ICD-10-PCS; principal; 2019-12-29)
DX: S82.851A Displaced trimalleolar fracture of right lower leg, initial encounter for closed fracture (principal); E66.2 Morbid (severe) obesity with alveolar hypoventilation; Z68.41 Body mass index [BMI] 40.0-44.9, adult; M19.90 Unspecified osteoarthritis, unspecified site; M79.7 Fibromyalgia; N18.9 Chronic kidney disease, unspecified; F31.9 Bipolar disorder, unspecified; F17.210 Nicotine dependence, cigarettes, uncomplicated; E10.22 Type 1 diabetes mellitus with diabetic chronic kidney disease; G89.29 Other chronic pain; F41.9 Anxiety disorder, unspecified; I12.9 Hypertensive chronic kidney disease with stage 1 through stage 4 chronic kidney disease, or unspecified chronic kidney disease; Z90.710 Acquired absence of both cervix and uterus; Z79.51 Long term (current) use of inhaled steroids; Z79.899 Other long term (current) drug therapy; Z88.8 Allergy status to other drugs, medicaments and biological substances; Z90.49 Acquired absence of other specified parts of digestive tract; W10.8XXA Fall (on) (from) other stairs and steps, initial encounter; Y93.89 Activity, other specified; Y92.098 Other place in other non-institutional residence as the place of occurrence of the external cause; Y99.8 Other external cause status; Z83.3 Family history of diabetes mellitus; Z82.49 Family history of ischemic heart disease and other diseases of the circulatory system; Z83.6 Family history of other diseases of the respiratory system; Z80.9 Family history of malignant neoplasm, unspecified; Z84.1 Family history of disorders of kidney and ureter

== ENCOUNTER 2020-01-27 19:03 | Emergency (ER) | payer MEDICARE ==
[~2020-01-27] VITALS: Ht 162.6 cm; Wt 108.9 kg
[~2020-01-27 19:03] MED LIST changes: +ADDERALL 10 MG10 MG PO; +CYCLOBENZAPRINE10 MG PO; +ENOXAPARIN40 MG/0.1 SUBQ; +KEFLEX500 M2 PO; +LAMICTAL100 MG PO; +LANTUS SUBQ; +MS CONTIN15 MG PO; +PERCOCET 5-3251 EACH PO; +TACROLIMUS0.5 MG PO; +XANAX 0.5 MG0.5 MG PO
[2020-01-27] MEDS ORDERED: TUMS200 MG PO (19:18)
[2020-01-27] MEDS ORDERED: SLEEP AID50 MG PO (19:19)
[2020-01-27] MEDS ORDERED: MAPAP500 MG PO (19:19)
[2020-01-27 19:55] LABS: INFLUENZA A ANTIGEN Negative (Negative); INFLUENZA B ANTIGEN Negative (Negative)
[2020-01-27 20:05] LABS: ABSOLUTE BASOPHILS 0.1 thou/uL (0.0-0.2); ABSOLUTE EOSINOPHILS 0.2 thou/uL (0.0-0.7); ABSOLUTE LYMPHOCYTES 1.4 thou/uL (0.8-5.3); ABSOLUTE MONOCYTES 0.6 thou/uL (0.0-1.2); ABSOLUTE NEUTROPHILS 11.4 thou/uL (1.6-8.1); BASOPHILS 0.8 %; EOSINOPHILS 1.1 %; HEMATOCRIT 40.7 % (37.0-47.0); HEMOGLOBIN 13.8 gm/dL (12.0-15.0); LYMPHOCYTES 9.9 %; MCH 29.7 pg (26.0-34.0); MCHC 33.8 g/dL (28.0-37.0); MCV 87.8 fL (80.0-100.0); MONOCYTES 4.6 %; MPV 8.5 fl. (7.2-11.1); NUCLEATED RBCS 0 /100WBC; PLATELET COUNT* 349 thou/uL (150-400); POLYS 83.6 %; RBC 4.64 mil/uL (4.20-5.00); WBC 13.7 thou/uL (4.0-11.0)
[2020-01-27 20:13] LABS: APTT 28.2 Seconds (25.0-31.3); CALCIUM 10.3 mg/dL (8.5-10.1); CREATININE 1.5 mg/dL (0.6-1.3); POTASSIUM 3.8 mmol/L (3.5-5.1); PROTIME 10.4 Seconds (9.20-11.50)
[2020-01-27 20:17] LABS: ALBUMIN 3.4 g/dL (3.4-5.0); TOTAL BILIRUBIN 0.4 mg/dL (<0.1-1.0); TOTAL PROTEIN 7.9 g/dL (6.4-8.2)
[2020-01-27 20:25] LABS: URINE BILIRUBIN NEGATIVE (Negative); URINE BLOOD 1+ (Negative); URINE CLARITY SL CLOUDY; URINE COLOR YELLOW; URINE GLUCOSE-RANDOM NEGATIVE (Negative); URINE KETONES TRACE (Negative); URINE LEUKOCYTES-REFLEX NEGATIVE (Negative); URINE NITRITE-REFLEX NEGATIVE (Negative); URINE PROTEIN 3+ (Negative); URINE SPECIFIC GRAVITY >= 1.030 (1.005-1.030); URINE UROBILINOGEN 0.2 E.U./dl (0.2-1.0)
[2020-01-27 20:31] LABS: SQUAMOUS >10 Many /LPF (0-3)
[2020-01-27 20:33] LABS: BACTERIA-REFLEX >30 Many /HPF (None Seen); HYALINE CASTS 0-3 Few /LPF (None Seen); URINE RBC 0-2 Rare /HPF (0-2)
[2020-01-27 20:34] LABS: CRYSTALS None Seen /LPF (None Seen); MUCUS 0-3 Light strn/LPF (None Seen)
[2020-01-27 20:36] LABS: URINE WBC-REFLEX None Seen /HPF (0-5)
[2020-01-27] MEDS ORDERED: CARAFATE1 GM/10 ML PO (21:10)
[2020-01-27] MEDS ORDERED: PROTONIX40 M1 PO (21:10)
[2020-01-27] MEDS ORDERED: ONDANSETRON HCL4 M2 PO ×2 (21:11)
[2020-01-27 21:29] VITALS: BP 164/101
== END 2020-01-27 21:30 | disposition home or self-care (01) ==
LOC: M.ERS 19:03
PROVIDERS: Nurse Practitioner Family
DX: K92.0 Hematemesis (principal); K59.00 Constipation, unspecified; E11.22 Type 2 diabetes mellitus with diabetic chronic kidney disease; N18.9 Chronic kidney disease, unspecified; M79.7 Fibromyalgia; G47.30 Sleep apnea, unspecified; F31.9 Bipolar disorder, unspecified; F17.210 Nicotine dependence, cigarettes, uncomplicated; Z90.49 Acquired absence of other specified parts of digestive tract; Z90.710 Acquired absence of both cervix and uterus; Z98.51 Tubal ligation status; Z88.1 Allergy status to other antibiotic agents; Z88.8 Allergy status to other drugs, medicaments and biological substances

== ENCOUNTER 2020-01-30 17:21 | Inpatient (IN) | payer MEDICARE ==
[~2020-01-30] VITALS: Ht 162.6 cm; Wt 118.4 kg
--- NOTE | ~2020-01-30 | CON ---
[address] [address] CONSULTATION Name: BREE BELOL Room: [address] IN M.R.#: [id number] Admission: 01/30/20 Attend Phys: Raul Yanes MD Discharge: Date of : 75 Report #: [id number] THIS REPORT FOR: //name// cc: Myron Taveras Russell J. DO ~ THIS REPORT FOR: //name// CC: Raul Taveras DATE OF SERVICE: 01/31/2020 REQUESTING PHYSICIAN: Raul Yanes MD REASON FOR CONSULTATION: Acute kidney injury. HISTORY OF PRESENT ILLNESS: The patient is a very pleasant 44-year-old female, very well known to us. 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 She tried different immunosuppressive therapies. She was on prednisone and CellCept, had a side effect on that and had to be stopped and was switched to tacrolimus. However, because of her recent ankle fracture and because of her fear that she may also experience some side effects, so she was never started on tacrolimus. Her creatinine prior to her ankle fracture that happens in 12/2019 was almost around 1 to 1.1 and then creatinine went up to 1.4 in December and in January it was 1.5 and yesterday it was 3.5. She was given IV fluids and creatinine came down to 2.3 today. PAST MEDICAL HISTORY: Significant for: 1. 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 2. Obesity. 3. History of hypertension. 4. Chronic back pain. MEDICATIONS: Prior to admission reviewed. FAMILY HISTORY: Noncontributory. SOCIAL HISTORY: No tobacco, no alcohol abuse. REVIEW OF SYSTEMS: Positive for problems with difficulty urination and not feeling well. She had poor p.o. intake. She had some hematemesis. She was on Lovenox after surgery on her ankle fracture ____ occurred in 12/2019. [place] [address] CONSULTATION Name: BREE BELLO Room: [address]#: [id number] Admission: 01/30/20 Attend Phys: Raul Yanes MD Discharge: Date of : 75 Report #: [id number] PHYSICAL EXAMINATION: GENERAL: Awake, alert, oriented, in no acute distress. VITAL SIGNS: Blood pressure 145/85, heart rate 77, afebrile. HEENT: Pupils are round. NECK: Fatty. LUNGS: Decreased air movement. CARDIOVASCULAR: Regular rate. ABDOMEN: Obese, soft. EXTREMITIES: Lower extremities with some edema, especially on the right. ASSESSMENT: 1. Acute kidney injury likely due to volume depletion. She responded well to IV fluids. Her renal functions are improving. 2. 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 3. Obesity. 4. History of hypertension. PLAN: Continue with fluids for today and then stop it. Monitor her renal function. Her blood cultures are pending. Urinalysis showed some protein, but otherwise was unremarkable. We will follow on her labs. By: [id number] Wheta MD /PMT
[~2020-01-30 17:21] MED LIST changes: +CARAFATE1 GM/10 ML PO; +MAPAP500 MG PO; +PROTONIX40 M1 PO; +SLEEP AID50 MG PO; +TUMS200 MG PO
[2020-01-30 17:36] VITALS: BP 150/83
[2020-01-30 18:08] LABS: ABSOLUTE BASOPHILS 0.1 thou/uL (0.0-0.2); ABSOLUTE EOSINOPHILS 0.4 thou/uL (0.0-0.7); ABSOLUTE LYMPHOCYTES 2.6 thou/uL (0.8-5.3); ABSOLUTE MONOCYTES 0.8 thou/uL (0.0-1.2); ABSOLUTE NEUTROPHILS 7.3 thou/uL (1.6-8.1); BASOPHILS 0.8 %; EOSINOPHILS 3.2 %; HEMATOCRIT 36.8 % (37.0-47.0); HEMOGLOBIN 12.5 gm/dL (12.0-15.0); LYMPHOCYTES 23.4 %; MCH 30.1 pg (26.0-34.0); MCHC 34.1 g/dL (28.0-37.0); MCV 88.4 fL (80.0-100.0); MONOCYTES 7.3 %; MPV 8.3 fl. (7.2-11.1); NUCLEATED RBCS 0 /100WBC; PLATELET COUNT* 321 thou/uL (150-400); POLYS 65.3 %; RBC 4.16 mil/uL (4.20-5.00); WBC 11.1 thou/uL (4.0-11.0)
[2020-01-30 18:19] LABS: CALCIUM 9.1 mg/dL (8.5-10.1); POTASSIUM 4.2 mmol/L (3.5-5.1)
[2020-01-30 18:20] LABS: CREATININE 3.5 mg/dL (0.6-1.3)
[2020-01-30 18:24] LABS: ALBUMIN 3.4 g/dL (3.4-5.0); TOTAL BILIRUBIN 0.4 mg/dL (<0.1-1.0); TOTAL PROTEIN 7.6 g/dL (6.4-8.2)
[2020-01-30 18:36] LABS: INFLUENZA A ANTIGEN Negative (Negative); INFLUENZA B ANTIGEN Negative (Negative)
[2020-01-30 18:48] LABS: URINE BILIRUBIN NEGATIVE (Negative); URINE BLOOD TRACE (Negative); URINE COLOR YELLOW; URINE GLUCOSE-RANDOM NEGATIVE (Negative); URINE KETONES NEGATIVE (Negative); URINE LEUKOCYTES-REFLEX NEGATIVE (Negative); URINE NITRITE-REFLEX NEGATIVE (Negative); URINE PROTEIN 2+ (Negative); URINE UROBILINOGEN 0.2 E.U./dl (0.2-1.0)
[2020-01-30 18:51] LABS: URINE CLARITY HAZY
[2020-01-30 18:58] LABS: BACTERIA-REFLEX None Seen /HPF (None Seen); SQUAMOUS 4-10 Moderate /LPF (0-3); URINE RBC None Seen /HPF (0-2); URINE WBC-REFLEX None Seen /HPF (0-5)
[2020-01-30 18:59] LABS: AMORPHOUS URATES Moderate /LPF (None Seen); CASTS None Seen /LPF (None Seen); MUCUS 0-3 Light strn/LPF (None Seen)
[2020-01-30 20:41] VITALS: BP 155/88
[2020-01-30 23:45] VITALS: BP 155/88
[2020-01-31] VITALS: BP 144/82
[2020-01-31] MEDS ORDERED: PROTONIX40 M2 PO (00:20)
[2020-01-31] MEDS ORDERED: ZANAFLEX4 M2 PO (00:21)
[2020-01-31] MEDS ORDERED: CARVEDILOL12.5 MG PO (00:23)
[2020-01-31] MEDS ORDERED: GABAPENTIN100 MG PO (00:25)
--- NOTE | 2020-01-31 02:37 | NUR ---
ADMIT TO ROOM 226 SHORTLY BEFORE MN. PT ALERT ORIENTED. HX OF BIPOLAR. NOT CURRENTLY ON MEDICATIONS FOR BIPOLAR DISORDER. R LEG IN AIR CAST FOR FRACTURE WITH SURGICAL REPAIR. NWB REPORTED BY OT. BOURGEOIS WITH LARGE AMT OF CLEAR YELLOW. PAIN MEDICATION AND ZOFRAN GIVEN IN ED. NS AT 100MLS/HR. WCTM
[2020-01-31 04:00] VITALS: BP 116/58
[2020-01-31 04:48] LABS: ABSOLUTE BASOPHILS 0.1 thou/uL (0.0-0.2); ABSOLUTE EOSINOPHILS 0.3 thou/uL (0.0-0.7); ABSOLUTE LYMPHOCYTES 2.7 thou/uL (0.8-5.3); ABSOLUTE MONOCYTES 0.7 thou/uL (0.0-1.2); ABSOLUTE NEUTROPHILS 5.9 thou/uL (1.6-8.1); BASOPHILS 0.6 %; EOSINOPHILS 2.7 %; HEMATOCRIT 34.8 % (37.0-47.0); HEMOGLOBIN 11.8 gm/dL (12.0-15.0); LYMPHOCYTES 28.3 %; MCHC 33.9 g/dL (28.0-37.0); MCV 88.6 fL (80.0-100.0); MONOCYTES 7.2 %; MPV 7.9 fl. (7.2-11.1); NUCLEATED RBCS 0 /100WBC; PLATELET COUNT* 296 thou/uL (150-400); POLYS 61.2 %; RBC 3.93 mil/uL (4.20-5.00); RDW-CV 13.6 % (10.5-14.5); WBC 9.6 thou/uL (4.0-11.0)
[2020-01-31 04:57] LABS: CALCIUM 8.5 mg/dL (8.5-10.1); POTASSIUM 4.1 mmol/L (3.5-5.1)
[2020-01-31 05:09] LABS: CREATININE 2.3 mg/dL (0.6-1.3)
[2020-01-31 07:05] VITALS: BP 145/85
--- NOTE | 2020-01-31 08:42 | NUR ---
PT REQUESTED BENADRYL APPROX 0200. BENADRY HAD BEEN GIVEN IN ED AT 2330. PT TOLD IT WAS A ONE TIME ORDER AND IT HAD ONLY BEEN 2 1/2 HRS. PT SAID SHE WOULD WAIT AND WOULD LIKE IT ORDERED THIS AM FOR ITCHING.
--- NOTE | 2020-01-31 12:01 | NUR ---
INITAL ASSESSMENT COMPLETED CHARTED. VSS. TRACING SR ON MONITOR. PT DENIES PAIN, N/V/D. REFER TO COMPUTER CHARTING FOR FURTHER DETAILS. HOURLY ROUNDING AND FALL PRECAUTIONS IN PLACE FOR TP SAFETY. CLWR.
--- NOTE | 2020-01-31 13:36 | NUR ---
Nutrition: Pt admitted with ARF. Seen for COnsult "other." Pt stated she's lost 20# in last month d/t diet change - less CHOs, no sugar. She is trying to get healthier; she has been able to take less insulin b/c of it too. is morbidly OBE and he needs nutrition counseling as well, as they cook/eat together. BG 126, albumin 3. 2gm Na diet. RD gave pt a menu. Pt is motivated to continue wt loss and good BG control. RD contact info provided. All questions answered today. Pt encouraged to continue healthy wt loss. Mild to low risk.
--- NOTE | 2020-01-31 14:21 | NUR ---
cm attempted initial assessment; however, pt not in her room. cm to f/u.
[2020-01-31 15:00] VITALS: BP 149/88
--- NOTE | 2020-01-31 16:45 | NUR ---
PT TRANSFERRED TO ROOM 317 AT 1400. PT ALERT AND ORIENTED X4. DENIES PAIN. CAM BOOT IN PLACE. PT IS NWB RIGHT FOOT. TRANSFERS STANDBY ASSIST TO BSC. PT TOLERATING MEALS. SENNA STARTED FOR CONSTIPATION, PT PASSING GAS. ACCU CHECK ACHS, PT HAS [employer] SYSTEM IN RIGHT ARM CHECKS SUGARS WITH PHONE. PT IS ON ROOM AIR, VSS. SEE ASSESSMENT AND VITALS FOR OTHER DETAILS. CALL LIGHT WITHIN REACH, WILL CONTINUE PLAN OF CARE
[2020-01-31 20:00] VITALS: BP 165/77
--- NOTE | 2020-02-01 02:26 | NUR ---
ASSESSMENT: PT REMAIN ALERT AND ORIENT TIMES THREE. UP AD MIKE TO BSC. UPON ENTERING PT'S ROOM SHE IMMEDIATELY ACCUSED THIS RN OF NOT COMING TO TURN OFF HER LIGHT 30 MINS AGO AFTER RINGING OUT. THIS RN DID NOT HAVE A CLUE OF WHAT SHE WAS TALKING ABOUT NOR WHY WAS SHE SO ANGRY AND CRYING. THIS RN TRIED TO EXPLAIN TO THE PT THAT THERE WAS NO MESSAGE GIVEN TO THIS RN IN REGARDS TO LIGHTS AND NOTHING ELSE. PT REFUSED TO TAKE HER 2100 MEDS AT THAT TIME AND REQUESTED TO TALK TO THE [employer]. PRIOR TO THE HOUSE SUP COMING IN TO TALK TO PT, THIS RN WENT IN TO INFORM HER THAT THE HS WAS COMING BUT WAS BUSY AT THE TIME. PT HAD CALLED HER IN BECAUSE SHE WANTED TO GO HOME. PT APOLOGIZED TO THIS RN STATING THAT HER DAY SHIFT EXPERIENCE WAS NOT GOOD AND SHE WAS FRUSTRATED SINCE THEN AND TOOK IT OUT ON BRIGHT CUTTER. PT C/O'D THAT SHE DID NOT GET ANY THING TO EAT, AND THAT THE MENU WAS DELIVERED POST DINNER TRAYS BEING DELIVERED. SHE SAID THAT HER DAUGHTER HAD TO BRING HER SOME FOOD. SHE FELT THAT THE DAY SHIFT RN IGNORED HER ALL DAY. THE CONCR[employer]ER FINALLY SPOKE WITH THE PT AND SHE SEEMED TO HAVE CALMED DOWN ENOUGH TO GET SOME PAIN MEDS, PLACE HERSELF ON HER HOME BIPAP AND TO GET SOME SLEEP. BP WAS SLIGHTLY ELEVATED. RIGHT CAM BOOT INTACT R/T A ANKLE FX. POSSIBLE DC TO HOME TOMORROW. SLOW PROGRESS, WILL CONTINUE TO MONITOR.
[2020-02-01 05:34] LABS: ABSOLUTE BASOPHILS 0.1 thou/uL (0.0-0.2); ABSOLUTE EOSINOPHILS 0.3 thou/uL (0.0-0.7); ABSOLUTE LYMPHOCYTES 2.4 thou/uL (0.8-5.3); ABSOLUTE MONOCYTES 0.7 thou/uL (0.0-1.2); BASOPHILS 0.7 %; HEMATOCRIT 34.6 % (37.0-47.0); HEMOGLOBIN 11.6 gm/dL (12.0-15.0); LYMPHOCYTES 25.5 %; MCH 29.7 pg (26.0-34.0); MCHC 33.5 g/dL (28.0-37.0); MCV 88.7 fL (80.0-100.0); MONOCYTES 7.4 %; MPV 8.5 fl. (7.2-11.1); NUCLEATED RBCS 0 /100WBC; PLATELET COUNT* 310 thou/uL (150-400); POLYS 63.4 %; RDW-CV 13.8 % (10.5-14.5); WBC 9.5 thou/uL (4.0-11.0)
[2020-02-01 05:46] LABS: CALCIUM 8.9 mg/dL (8.5-10.1); CREATININE 1.3 mg/dL (0.6-1.3); POTASSIUM 4.3 mmol/L (3.5-5.1)
[2020-02-01 07:40] VITALS: BP 130/69
[2020-02-01 13:42] VITALS: BP 130/69
--- NOTE | 2020-02-01 14:32 | NUR ---
Pt to dc home today. SW met with pt to discuss safe dc planning and discuss HH at dc. Pt refused HH services to be arranged stating that she does her own home exercise program and that she feels comfortable that she is safe and does not need HH at this time. Pt has support in and children. No other needs identified or expressed by pt.
--- NOTE | 2020-02-01 15:29 | NUR ---
ASSUMMED CARE OF PT AT 0730, PT ALERT AND ORIENTED, PT UP TO COMMODE WITH A TRANSFER/PIVOT, VOID X 2 THIS SHIFT, BLADDER SCANNED X 1 FOR 0 CC, PT C/O ITCHING AT IV SITE, DRESSING CHANGED AND PAPER TAPE USE OVER TRANSPARENT DRESSING, PT CONCERNED ABOUT BRUISE AT IV SITE, PT REASSURED, SALINE LOCK PATENT, PT HAS CAM BOOT TO RIGHT LEG, TAKING FOOD AND FLUIDS WELL, HOURLY ROUNDING COMPLETED, ASSESSMENT COMPLETE, WILL CONTINUE TO MONITOR.
== END 2020-02-01 16:03 | disposition home or self-care (01) | DRG 683 ==
LOC: M.ERS 17:21 → M.2W 18:49 → M.TBA-ER 18:49 → M.2W 23:50 → M.3W 01-31 15:17
PROVIDERS: Physician Assistant; ADMIT Internal Medicine
DX: N17.0 Acute kidney failure with tubular necrosis (principal); Z68.41 Body mass index [BMI] 40.0-44.9, adult; E66.2 Morbid (severe) obesity with alveolar hypoventilation; E86.0 Dehydration; M79.7 Fibromyalgia; G47.419 Narcolepsy without cataplexy; F31.9 Bipolar disorder, unspecified; E11.22 Type 2 diabetes mellitus with diabetic chronic kidney disease; F17.210 Nicotine dependence, cigarettes, uncomplicated; G89.29 Other chronic pain; N18.3 Chronic kidney disease, stage 3 (moderate); I12.9 Hypertensive chronic kidney disease with stage 1 through stage 4 chronic kidney disease, or unspecified chronic kidney disease; Z91.041 Radiographic dye allergy status; Z79.891 Long term (current) use of opiate analgesic; Z90.89 Acquired absence of other organs; Z90.710 Acquired absence of both cervix and uterus; Z79.899 Other long term (current) drug therapy; Z88.8 Allergy status to other drugs, medicaments and biological substances; Z91.14 Patient's other noncompliance with medication regimen

== ENCOUNTER → 2020-03-28 | Outpatient (CLI) | payer MEDICARE ==
[~2020-03-28] MED LIST changes: +CARVEDILOL12.5 MG PO; +PROTONIX40 M2 PO; +ZANAFLEX4 M2 PO
== END ==
LOC: M.ULTRA 10:43
DX: Z12.31 Encounter for screening mammogram for malignant neoplasm of breast (principal); Q89.9 Congenital malformation, unspecified; I15.0 Renovascular hypertension

== ENCOUNTER 2020-07-01 02:19 | Emergency (ER) | payer MEDICARE ==
[~2020-07-01] VITALS: Ht 165.1 cm; Wt 89.4 kg
[2020-07-01] MEDS ORDERED: SUPER THERAVIT1 EACH PO (02:30)
[2020-07-01] MEDS ORDERED: LAMICTAL150 MG PO (02:30)
[2020-07-01 02:40] LABS: URINE BILIRUBIN NEGATIVE (Negative); URINE BLOOD 1+ (Negative); URINE CLARITY CLEAR; URINE COLOR YELLOW; URINE GLUCOSE-RANDOM NEGATIVE (Negative); URINE KETONES NEGATIVE (Negative); URINE LEUKOCYTES-REFLEX NEGATIVE (Negative); URINE NITRITE-REFLEX NEGATIVE (Negative); URINE PROTEIN 3+ (Negative); URINE UROBILINOGEN 0.2 E.U./dl (0.2-1.0)
[2020-07-01 02:50] LABS: AMP/METHAMP Negative (Negative); BARBITURATES Negative (Negative); BENZODIAZEPINES Negative (Negative); COCAINE Negative (Negative); METHADONE Negative (Negative); OPIATES Negative (Negative); PCP Negative (Negative); THC Negative (Negative)
[2020-07-01 03:17] LABS: CASTS None Seen /LPF (None Seen); SQUAMOUS >10 Many /LPF (0-3)
[2020-07-01 03:18] LABS: BACTERIA-REFLEX 1-9 Few /HPF (None Seen); CRYSTALS None Seen /LPF (None Seen); URINE RBC 3-10 Few /HPF (0-2); URINE WBC-REFLEX 0-5 Rare /HPF (0-5)
[2020-07-01 04:28] LABS: ABSOLUTE BASOPHILS 0.1 thou/uL (0.0-0.2); ABSOLUTE LYMPHOCYTES 1.6 thou/uL (0.8-5.3); ABSOLUTE MONOCYTES 0.7 thou/uL (0.0-1.2); ABSOLUTE NEUTROPHILS 6.6 thou/uL (1.6-8.1); BASOPHILS 0.8 %; EOSINOPHILS 0.3 %; HEMATOCRIT 33.4 % (37.0-47.0); HEMOGLOBIN 11.5 gm/dL (12.0-15.0); LYMPHOCYTES 17.6 %; MCH 30.2 pg (26.0-34.0); MCHC 34.4 g/dL (28.0-37.0); MCV 87.9 fL (80.0-100.0); MONOCYTES 7.6 %; MPV 8.2 fl. (7.2-11.1); NUCLEATED RBCS 0 /100WBC; PLATELET COUNT* 281 thou/uL (150-400); POLYS 73.7 %; RDW-CV 13.6 % (10.5-14.5)
[2020-07-01 04:42] LABS: CALCIUM 8.4 mg/dL (8.5-10.1); CREATININE 1.4 mg/dL (0.6-1.3); POTASSIUM 3.8 mmol/L (3.5-5.1)
[2020-07-01] MEDS ORDERED: AMOXICILLIN875 MG PO (05:32)
[2020-07-01 06:00] VITALS: BP 132/76
== END 2020-07-01 06:00 | disposition home or self-care (01) ==
LOC: M.ERS 02:19
PROVIDERS: Emergency Medicine
DX: H66.91 Otitis media, unspecified, right ear (principal); R07.81 Pleurodynia; E11.22 Type 2 diabetes mellitus with diabetic chronic kidney disease; N18.9 Chronic kidney disease, unspecified; M79.7 Fibromyalgia; G47.30 Sleep apnea, unspecified; F17.210 Nicotine dependence, cigarettes, uncomplicated; Z20.828 Contact with and (suspected) exposure to other viral communicable diseases; Z90.49 Acquired absence of other specified parts of digestive tract; Z98.51 Tubal ligation status; Z90.710 Acquired absence of both cervix and uterus; Z88.8 Allergy status to other drugs, medicaments and biological substances

== ENCOUNTER → 2020-10-30 | Outpatient (CLI) | payer MEDICARE ==
[~2020-10-30] MED LIST changes: +AMOXICILLIN875 MG PO; +LAMICTAL150 MG PO; +SUPER THERAVIT1 EACH PO
[2020-10-30 10:12] LABS: CALCIUM 8.8 mg/dL (8.5-10.1); PHOSPHORUS* 3.8 mg/dL (2.5-4.9)
[2020-10-30 11:17] LABS: ALBUMIN 3.3 g/dL (3.4-5.0); CALCIUM 9.3 mg/dL (8.5-10.1); CREATININE 1.1 mg/dL (0.6-1.3); PHOSPHORUS* 3.8 mg/dL (2.5-4.9); POTASSIUM 4.1 mmol/L (3.5-5.1)
== END ==
LOC: M.LAB 09:05
PROVIDERS: ATTEND Internal Medicine Nephrology
DX: Q89.9 Congenital malformation, unspecified (principal)